=== PATIENT | female | born 1970 | race Hispanic/Latino ===

== ENCOUNTER 2020-03-08 15:25 | Emergency (ER) | payer OTHER, SELFPAY ==
--- NOTE | 2020-03-08 16:54 | RAD ---
Chest one view HISTORY: Dyspnea. Cough. FINDINGS: Cardiac silhouette and pulmonary vasculature are unremarkable. Mediastinum is midline. Very subtle, fine groundglass opacity projects over the right base. No lobar consolidation or evidenc e of pneumothorax. IMPRESSION : Very subtle right basilar groundglass infiltrate. Correlate for early COVID pneumonitis.
[2020-03-08] MEDS ORDERED: Amoxicillin/Potassium Clav 875 MG TAB ONE (17:42)
[2020-03-09 18:16] LABS: SARS-CoV-2 MS2 Positive; SARS-CoV-2 N Gene Positive; SARS-CoV-2 S Gene Positive; SARS-CoV-2 by NAA DETECTED (NotDetected); SARS-CoV-2 orf1ab Positive
== END 2020-03-08 17:45 | disposition home or self-care (01) ==
LOC: MADERS 15:25
DX: U07.1 COVID-19 (principal); J12.82 Pneumonia due to coronavirus disease 2019; J01.90 Acute sinusitis, unspecified; B96.89 Other specified bacterial agents as the cause of diseases classified elsewhere; E11.9 Type 2 diabetes mellitus without complications; K76.0 Fatty (change of) liver, not elsewhere classified; F17.210 Nicotine dependence, cigarettes, uncomplicated; Z79.899 Other long term (current) drug therapy
CPT/HCPCS: 71045; 87635; 87804; U0003